=== PATIENT | female | born 1970 | race Caucasian/White ===

== ENCOUNTER → 2016-08-27 | Outpatient (CLI) | payer BC | LOC: FIMAGING 09:40 | DX: Z12.31 Encounter for screening mammogram for malignant neoplasm of breast (principal) | CPT/HCPCS: G0202 ==

== ENCOUNTER → 2017-09-08 | Outpatient (CLI) | payer BC | LOC: FIMAGING 11:09 | PROVIDERS: ATTEND Family Medicine Sports Medicine | DX: Z12.31 Encounter for screening mammogram for malignant neoplasm of breast (principal) ==

== ENCOUNTER 2017-10-08 08:18 | Observation (INO) | payer BC ==
--- NOTE | 2017-10-08 08:41 | CPEKG ---
Heart Rate: 64 RR Interval: 938 P-R Interval: 164 QRSD Interval: 86 QT Interval: 400 QTC Interval: 413 P [place]: 49 QRS [place]: 75 T Wave [place]: 97 EKG Severity - BORDERLINE ECG - EKG Impression: SINUS RHYTHM EKG Impression: ATRIAL PREMATURE COMPLEX EKG Impression: BORDERLINE T ABNORMALITIES, LATERAL LEADS Electronically Signed By: Garo Ding 08-Oct-2017 15:33:16
[2017-10-08] MEDS ORDERED: NS 500 ML IV ONE (09:00)
[2017-10-08 09:06] LABS: PLATELET COUNT 271 10^3/uL (150-400)
[2017-10-08 09:14] LABS: INR 1.03 (0.83-1.16); PROTIME(PATIENT) 13.7 SEC (12.0-15.0)
--- NOTE | 2017-10-08 09:40 | EDPHY ---
H & P Time Seen by Provider: 10/08/17 08:54 HPI/ROS: HPI Fainted. 47-year-old female by private vehicle. This patient reports she has a history of atrial fibrillation with an ablation which was done roughly in 2011. She has not had any issues with her atrial fibrillation since before that time. She is not on any antiarrhythmic medications or anticoagulation. She reports that this morning she was standing making lunch for her daughter. She reports that she felt fatigued and was not feeling well and felt her heart skipping around some but denies any rapid heart beat or significant palpitations. She reports that her daughter looked at her and she was sweating fairly heavily, told her daughter that she was not feeling well and next thing she was waking up on the floor. No associated chest pain, no associated headache, no shortness of breath, no associated palpitations or rapid heart rate other than noted. ROS: Constitutional: No fever, no chills. As above. Eyes: No discharge. No changes in vision. ENT: No sore throat. No nasal congestion or rhinorrhea. Respiratory: No cough. No shortness of breath. Cardiac: No chest pain, as above. Gastrointestinal: No abdominal pain, no vomiting, no diarrhea. Genitourinary: No hematuria. No dysuria or increased frequency with urination. Musculoskeletal: No back pain. No neck pain. No myalgias or arthralgias. Skin: No rashes. Neurological: No headache. No focal weakness or altered sensation. Past medical history: As above. No current prescription medications. Social history: Nonsmoker. . Drinks a glass of wine at night. Physical Exam: General Appearance: Alert, no distress. This patient is responding to questions appropriately and in full sentences. This patient appears well- hydrated and well-nourished. Head: Normocephalic atraumatic. Eyes: Pupils equal and round no pallor or injection. No lid edema, erythema or injection. No nystagmus. No photophobia. ENT, Mouth: Mucous membranes are moist. The pharyngeal tissues are unremarkable. No edema or swelling. No asymmetry suggestive of abscess. No erythema or exudates. No tongue lacerations or abrasions. Respiratory: There are no retractions, lungs are clear to auscultation with good air movement bilaterally. Cardiovascular: Regular rate and rhythm with intermittent PAC. No murmur. Gastrointestinal: Abdomen is soft and nontender, no masses, bowel sounds normal. No focal tenderness at McBurney's point. No Brink sign. Neurological: Motor sensory function is grossly intact. Cranial nerves are normal. Gait is normal. Skin: Warm and dry, no rashes. Musculoskeletal: Neck is supple and nontender. Extremities are symmetrical. All joints range without pain or impingement. Psychiatric: No agitation. No depression. Database: EKG: EKG time is 8:36 a.m.; EKG shows a narrow complex normal sinus rhythm with a ventricular rate of 64. Atrial premature complexes noted. The NE, QRS, QT intervals are within normal limits. Subtle T-wave inversion in 1 and aVL. There are no ST-T wave changes indicative of ischemic or injury pattern. No evidence of right heart strain. No evidence of Brugada syndrome, WPW, hypertrophic cardiomyopathy. Interpreted by me. Imaging: Procedures: Emergency department course: Vital signs reviewed and are normal. IV placed. Patient placed on a youth nutritional monitor. She was started on IV normal saline. She will be given 500 cc over 1 hr. EKG obtained and reviewed by myself. 10:15 a.m., patient re-evaluated. Resting comfortably at this time. Vital signs reviewed and are normal. Narrow complex sinus rhythm on her monitor. Discussed results of emergency department workup. Discussed plan for admission. She endorses in all of her questions were answered. 10:20 a.m., spoke with hospitalist. Case discussed in detail. Patient accepted for admission. Patient admitted to the hospitalist service, telemetry in stable condition. Differential Diagnosis: The differential diagnosis on this patient includes but is not limited to arrhythmia. Acute coronary syndrome, pulmonary embolism, subarachnoid hemorrhage unlikely. This represents a partial list of diagnoses considered. These considerations are based on history, physical exam, past history, reassessment and diagnostic testing. Smoking Status: Never smoked Constitutional: Initial Vital Signs Temperature (C) 36.3 C 10/08/17 08:25 Heart Rate 65 10/08/17 08:25 Respiratory Rate 18 10/08/17 08:25 Blood Pressure 102/63 10/08/17 08:25 O2 Sat (%) 99 10/08/17 08:25 O2 Delivery Mode Room Air Allergies/Adverse Reactions: No Known Allergies Allergy (Verified 10/08/17 08:25) Home Medications: Medication Instructions Recorded C/E/Zn/Cu/OM3/DHA/EPA/LUT/ZEAX 1 each PO BID 10/08/17 [Preservision Areds 2 Softgel] Medical Decision Making - Data Points Laboratory Results: Laboratory Results 10/08/17 08:39 10/08/17 08:39 10/08/17 10/08/17 10/08/17 08:39 08:39 08:39 WBC 7.52 10^3/uL 10^3/uL (3.80-9.50) RBC 4.29 10^6/uL 10^6/uL (4.18-5.33) Hgb 13.5 g/dL g/dL (12.6-16.3) Hct 40.4 % % (38.0-47.0) MCV 94.2 fL fL (81.5-99.8) MCH 31.5 pg pg (27.9-34.1) MCHC 33.4 g/dL g/dL (32.4-36.7) RDW 13.3 % % (11.5-15.2) Plt Count 271 10^3/uL 10^3/uL (150-400) MPV 10.1 fL fL (8.7-11.7) Neut % (Auto) 73.5 % % (39.3-74.2) Lymph % (Auto) 17.0 % % (15.0-45.0) [place] % (Auto) 7.3 % % (4.5-13.0) Eos % (Auto) 1.5 % % (0.6-7.6) Baso % (Auto) 0.4 % % (0.3-1.7) Nucleat RBC Rel Count 0.0 % % (0.0-0.2) Absolute Neuts (auto) 5.53 10^3/uL 10^3/uL (1.70-6.50) Absolute Lymphs (auto) 1.28 10^3/uL 10^3/uL (1.00-3.00) Absolute Monos (auto) 0.55 10^3/uL 10^3/uL (0.30-0.80) Absolute Eos (auto) 0.11 10^3/uL 10^3/uL (0.03-0.40) Absolute Basos (auto) 0.03 10^3/uL 10^3/uL (0.02-0.10) Absolute Nucleated RBC 0.00 10^3/uL 10^3/uL (0-0.01) Immature Gran % 0.3 % % (0.0-1.1) Immature Gran # 0.02 10^3/uL 10^3/uL (0.00-0.10) PT 13.7 SEC SEC (12.0-15.0) INR 1.03 (0.83-1.16) APTT 25.9 SEC SEC (23.0-38.0) Sodium 140 mEq/L mEq/L (135-145) Potassium 4.0 mEq/L mEq/L (3.5-5.2) Chloride 105 mEq/L mEq/L (97-110) Carbon Dioxide 24 mEq/l mEq/l (22-31) Anion Gap 11 mEq/L mEq/L (8-16) BUN 14 mg/dL mg/dL (7-23) Creatinine 0.6 mg/dL mg/dL (0.6-1.0) Estimated GFR > 60 Glucose 92 mg/dL mg/dL (70-100) Calcium 8.9 mg/dL mg/dL (8.5-10.4) Troponin I < 0.012 ng/mL ng/mL (0.000-0.034) Medications Given: Discontinued Medications Sodium Chloride (Ns) 500 mls @ 1,000 mls/hr IV EDNOW ONE PRN Reason: Protocol Stop: 10/08/17 09:29 Last Admin: 10/08/17 09:13 Dose: 500 mls Departure - Departure Disposition: [facility] Inpatient Acute Clinical Impression: Syncope Referrals: Zenon Hanks MD [Primary Care Provider] - As per Instructions
--- NOTE | 2017-10-08 11:26 | ASMTCMCOM ---
CM Note CM Note Notes: Pt presented to the Emergency Department following a syncopal episode this morning. History is significant for afib with an ablation in 2011. Pt to be admitted for further evaluation and treatment. Pt is and lives with her spouse; she has a daughter. Discharge needs remain unclear at this time. CM will continue to follow. Current Discharge Plan: To be determined Date Signed: 10/08/2017 11:26 AM Electronically Signed By:Seda Stubbs RN
[2017-10-08] MEDS ORDERED: ONDANSETRON DISINTEGRATING 4 MG TAB PO PRN (15:14)
[2017-10-08] MEDS ORDERED: ONDANSETRON 4 MG/2 ML VIAL IVP PRN (15:14)
[2017-10-08] MEDS ORDERED: ACETAMINOPHEN 325 MG TAB PO PRN (15:14)
--- NOTE | 2017-10-08 16:27 | GHP ---
[f rep st] HISTORY AND PHYSICAL DATE OF ADMISSION: 10/08/2017 CHIEF COMPLAINT: Syncope. HISTORY OF PRESENT ILLNESS: This is a 47-year-old female with a history of an atrial fibrillation ab lation [place] [address] Pearl, who presents with syncope. She went to the [employer] game last night. She had about a glass and a half of wine, but felt dehydrated throughout the entire game. She was out late, and because of this she slept in late. She woke up to make her daughter's breakfast this morning, rodriguez d not urinated yet for the day when this occurred. She had a slight prodrome with abnormal heartbeat s, which she has difficulty further characterizing. She had no chest pain or shortness of breath. S he had very little prodrome and then had this episode of syncope. The next thing she remembers, she was looking up from the floor wondering why she was on the floor. This was unwitnessed. She did los e control of her bladder, but did not have any tongue biting or postictal phase. Her daughter came u p shortly thereafter. She recovered quickly, was able to finish her daughter's breakfast, sent her d aughter to school, took a shower, and then presented to the emergency department. AFib history notable for the ablation in 2009. She had presyncopal episodes with that, but no syncop e. She has not had any syncope since then. She has not needed any cardiology followup for the past 6 years. PAST MEDICAL/SURGICAL HISTORY: Atrial fibrillation, status post ablation. MEDICATIONS: Please see medication reconciliation. ALLERGIES: No known drug allergies. FAMILY HISTORY: No AFib. SOCIAL HISTORY: She rarely drinks alcohol. She does not smoke. She is . She is accompanied by her . REVIEW OF SYSTEMS: A 10-point review of systems is conducted and is negative except per HPI. PHYSICAL EXAMINATION: VITAL SIGNS: Blood pressure 107/58, heart rate 66, respiration rate 16, satti ng 98% on room air, temperature is 36.7. GENERAL: The patient is a pleasant female, who is providin g full history, resting comfortably. HEENT: Shows her to be normocephalic, atraumatic. She has no tongue laceration. CARDIOVASCULAR: Shows a regular rate and rhythm with occasional premature beats. She has no murmurs, rubs, or gallops. PULMONARY: Shows her to be in no respiratory distress. IRIS GS: Clear to auscultation bilaterally. ABDOMEN: Soft, nontender, nondistended. SKIN: Shows no ra sh. : Shows no [place]. NEUROLOGIC: Shows her to be alert and oriented x3. She is moving all ext remities. She has a nonfocal neurologic exam. PSYCHIATRIC: Shows normal mood and affect. LABORATORY DATA: Basic metabolic panel is normal. Troponins negative. INR is 1.0. CBC is normal. DATA: 1. Discussed this with Dr. Rebollar. 2. I personally viewed and interpreted her telemetry, as well as her EKG. This shows she is in sinu s rhythm. She has a premature beat. This is an atrial beat. It appears to be an ectopic beat. Oth erwise, there are no ST changes. IMPRESSION AND PLAN: Syncope: Differential is arrhythmogenic, vagal, seizure. I think seizure is m uch less likely given her lack of postictal period, lack of tongue laceration. She did lose control of her bladder. Vagal is certainly possible given the need for micturition as well as diaphoresis as sociated with this. Arrhythmogenic is also concerning given the rapidity of her syncope. I have dis cussed this with Dr. Rebollar. He will ask for an electrophysiology evaluation with Dr. Royal today. I have ordered an echocardiogram. We will trend her troponins and follow her on telemetry. If she rodriguez s no arrhythmias here, she will likely need longer-term monitoring. I discussed this with her and he r . They are both comfortable with this. /[id number]/MODL
--- NOTE | 2017-10-09 09:10 | GCON ---
[f rep st] CONSULTATION This is a 47-year-old female with past history of atrial fibrillation status post ablation in 2009. She was at [employer] game yesterday and had a glass and a half of wine but felt dehydrated throughout the entire game. She was out late and could not sleep all night long. In the morning, she was feeling extremely fatigued, tired and dehydrated. She had not had any breakfast. She was making breakfast for her daughter at which point in time, she was feeling tired and was having some increased sweating. No palpitations noted, after which she passed out and she remembers waking up on the floor. She did lose her bladder control. No tongue bite. No postictal phase. She recovered quickly from this , she did not feel extremely fatigued post instance. She had 1 more such instance immediately after pulmonary vein isolation in 2009. She has not had any recurrence of her atrial fibrillation since her ablation. PAST MEDICAL AND SURGICAL HISTORY: Atrial fibrillation, status post PVI. MEDICATIONS: None. ALLERGIES: None. FAMILY HISTORY: Noncontributory. No family history of sudden cardiac . SOCIAL HISTORY: Rarely drinks alcohol. Does not smoke. and accompanied by her . REVIEW OF SYSTEM: Other than the above, a 10-point review of systems is negative. PHYSICAL EXAMINATION: Blood pressure of 107/80, pulse of 66, respiratory rate 16. EYES: Pupils equal, reacting to light, accommodating. GENERAL: The patient is a pleasant female who is providing full history, resting comfortably, good mood and affect. HEAD: Normocephalic, atraumatic. No tongue lacerations. NECK : No JVD. No thyromegaly. CHEST: Good air entry bilaterally, equal. No rales , rhonchi, or rub. HEART: S1, S2 regular. No S3. No murmurs. ABDOMEN: Soft , nontender. No guarding or rigidity. Bowel sounds present. EXTREMITIES: No edema. No clubbing. NEUROLOGIC: Nonfocal neurological exam. LABORATORY: Normal. Troponin negative. IMPRESSION AND PLAN: This is a 47-year-old female who comes in with syncope which appears to be related to a combination of factors such as dehydration, sleepless night, and some component of vasovagal. We will recommend getting an echocardiogram and keeping her on the telemonitor. If the telemonitor is negative, giving her a 30 day monitor as an outpatient. If this evaluation is negative, no further evaluation will be needed. If we see any arrhythmias, then clinical correlation will be made and she will be seen in the clinic. Thank you for letting me participate in the patient's care. Feel free to call me for questions. /[id number]/MODL MTDD
--- NOTE | 2017-10-09 10:17 | ASMTCAGE ---
CAGE Do you feel you ought to Answers: No cut down on your drinking or drug use? Do people annoy you by Answers: No criticizing your drinking or drug use? Do you feel guilty about Answers: No your drinking or drug use? Do you drink or use drugs Answers: No first thing in the morning ([employer])? Date Signed: 10/09/2017 10:17 AM Electronically Signed By:DREW Hoffman
--- NOTE | 2017-10-09 10:58 | ECHO ---
[email or web address] [address] [address] Main: [phone] Fax: Transthoracic Echocardiogram Name: GIANA ORNELAS MR#: [id number] Study Date: 10/09/2017 Study Time: 07:57 AM Date of : 1970 Age: 47 year(s) Height: 162.6 cm (64 in.) Weight: 68.04 kg (150 lb.) BSA: 1.73 m2 Gender: Female Examination: Echo Indication: Cardiac: syncope Image Quality: Adequate Contrast: Requested by: Mayank Ricks BP: 104 mmHg/59 mmHg Heart Rate: 68 bpm Rhythm: Normal sinus rhythm Indication: Cardiac: syncope Procedure Staff Sixth Grade Teacher: Monique Manning [facility] Reading Physician: Pasha Mario MD Requesting Provider: Conclusions: Normal size left ventricle. No LV hypertrophy. Normal global systolic LV function. EF is 75 %. No regional wall motion abnormality. Normal diastolic LV function. Normal RV function. The mitral valve is normal in appearance and function. Trivial mitral valve regurgitation. No mitral stenosis is present. There is no aortic valve regurgitation. No aortic valve stenosis is present. The tricuspid valve is normal in appearance and function. Trivial tricuspid valve regurgitation. The pulmonary artery pressure is normal. There is no pulmonic regurgitation seen. Normal size aortic root measuring 2.4 cm. Normal size ascending aorta measuring 2.8 cm. Measurements: Chambers Valvular Assessment AV/MV Valvular Assessment TV/PV Normal Normal Normal Name Value Range Name Value Range Name Value Range Ao Ellen (MM): 2.4 cm (2.2 cm-3.7 AV Vmax: 1.22 m/s (1 m/s-1.7 TR Vmax: 1.72 mm/s ( - ) cm) m/s) TR PGmax: 12 mmHg ( - ) IVSd (2D): 0.7 cm (0.6 cm-1.1 AV maxP mmHg ( - ) syst. PAP: 17 mmHg ( - ) cm) LVOT Vmax: 1.07 m/s (0.7 m/s-1.1 PV Vmax: 1.04 m/s (0.6 m/s-0.9 LVDd (2D): 4.7 cm (3.9 cm-5.3 m/s) m/s) cm) MV E Vmax: 0.90 m/s ( - ) PV PGmax: 4 mmHg ( - ) MV A Vmax: 0.47 m/s ( - ) Patient: GIANA ORNELAS Study Date: 10/09/2017 Page 1 of 2 07:57 AM LVDs (2D): 2.9 cm (2.1 cm-4 MV E/A: 1.91 ( - ) cm) LVPWd (2D): 0.9 cm ( - ) LVEF (BP): 75 % (>=55 %) Continued Measurements: Chambers Valvular Assessment AV/MV Valvular Assessment TV/PV Name Value Name Value Name Value LADs: 3.8 cm MV DecTime: 151 m/s CVP (est.): 5 mmHg LADs Lon.6 cm MV E/E' Septal: 9.80 LA Area: 21.6 cm2 MV E/E' Lateral: 7.50 LA Volume: 62 ml LA Volume Index: 35.8 ml/m2 TAPSE: 2.3 cm RA Area: 16.3 cm2 Additional Vessels Name Value Ao Ascendin.8 cm Findings: Left Ventricle: Normal size left ventricle. No LV hypertrophy. Normal global systolic LV function. EF is 75 %. No regional wall motion abnormality. Normal diastolic LV function. Right Ventricle: Normal size right ventricle. Normal RV function. Left Atrium: The left atrium is mildly dilated. Right Atrium: The right atrium is normal in size. Mitral Valve: The mitral valve is normal in appearance and function. Trivial mitral valve regurgitation. No mitral stenosis is present. Aortic Valve: The aortic valve is tri-leaflet and functions normally. There is no aortic valve regurgitation. No aortic valve stenosis is present. Tricuspid Valve: The tricuspid valve is normal in appearance and function. Trivial tricuspid valve regurgitation. The pulmonary artery pressure is normal. Pulmonic Valve: The pulmonic valve is normal in appearance and function. There is no pulmonic regurgitation seen. Aorta: The aorta is normal. Normal size aortic root measuring 2.4 cm. Normal size ascending aorta measuring 2.8 cm. IVC: The IVC is normal sized. Pericardium: Trivial pericardial effusion. (No Signature Object) Patient: GIANA ORNELAS Study Date: 10/09/2017 Page 2 of 2 07:57 AM [id number]
[2017-10-09 12:01] VITALS: BP 108/62
--- NOTE | 2017-10-09 15:16 | GDS ---
[f rep st] DISCHARGE SUMMARY DISCHARGE DIAGNOSIS: 1. Syncope of unclear etiology but most likely vasovagal. 2. History of atrial fibrillation status post ablation. CONSULTANTS: Dr. Raghu Alfaro, [facility]. HOSPITAL COURSE AND HOSPITAL STAY: Syncope: The patient was placed on observation where she was mon itored on telemetry and was not noted to have any arrhythmias. She was evaluated by Dr. Alfaro from [facility] who thought her syncope was related to combination of factors including dehydration, insuffi cient sleep, and a vasovagal component. An echocardiogram was done, which revealed no structural car diac abnormalities. On day of discharge, the patient states she feels well and would like to be disc harged home. She plans to have outpatient Holter monitor. PHYSICAL EXAM: VITAL SIGNS: On day of discharge, blood pressure 108/62, pulse 51, respiratory rate 12, O2 saturation 97% on room air. Temperature afebrile. GENERAL: No acute distress. HEART: S1, S 2. LUNGS: Clear. ABDOMEN: Soft. EXTREMITIES: No edema. PERTINENT LABORATORY AND STUDIES: Echocardiogram done 10/08/2017 ejection fraction was 75% with no r egional wall motion abnormalities, no significant valvular disease. Please refer to report for full details. DISCHARGE MEDICATIONS: Please refer to discharge medication reconciliation in [facility] for details. DISCHARGE INSTRUCTIONS: The patient will be discharged from the hospital where she should have a Hol ter monitor done. She should follow up with her primary care provider and her category director for [facility] followup. /[id number]/MODL
== END 2017-10-09 12:55 | disposition home or self-care (01) ==
LOC: F2W 14:12
PROVIDERS: ADMIT Student in an Organized Health Care Education/Training Program; ATTEND Family Medicine
DX: R55 Syncope and collapse (principal); E86.9 Volume depletion, unspecified; Z86.79 Personal history of other diseases of the circulatory system
CPT/HCPCS: 93005; 93306; 99285; G0378

== ENCOUNTER → 2018-10-01 | Outpatient (CLI) | payer BC | LOC: FIMAGING 13:18 | PROVIDERS: ATTEND Family Medicine Sports Medicine | DX: Z12.31 Encounter for screening mammogram for malignant neoplasm of breast (principal) ==